=== PATIENT | female | born 1970 | race Caucasian/White ===

== ENCOUNTER → 2016-09-21 | Outpatient (CLI) | payer OTHER ==
--- NOTE | 2016-09-21 15:03 | MAMMOGRAPHY REPORT ---
BILATERAL DIGITAL SCREENING MAMMOGRAM TOMOSYNTHESIS WITH CAD: 09/21/2016 CLINICAL HISTORY: Routine screening. Patient has no complaints. TECHNIQUE: Breast tomosynthesis in addition to standard 2D mammography was performed. Current study was also evaluated with a Computer Aided Detection (CAD) system. COMPARISON: Comparison is made to exams dated: 08/11/2015 mammogram, 06/12/2014 mammogram, 04/24/2012 m ammogram, 04/18/2012 mammogram, 08/11/2015 ultrasound, and 06/12/2014 ultrasound - [facility]. BREAST COMPOSITION: The tissue of both breasts is heterogeneously dense, which may obscure small ma sses. FINDINGS: No suspicious masses, calcifications, or areas of architectural distortion are noted in e ither breast. There are new postsurgical changes from bilateral reduction mammoplasty. Benign-appe aring left breast calcifications are not significantly changed, when accounting for differences in l ocation of the calcifications after reduction mammoplasty. This serves as the patient's new baselin e exam after surgery. IMPRESSION: ACR BI-RADS CATEGORY 2: BENIGN There is no mammographic evidence of malignancy. A 1 year screening mammogram is recommended. The p atient will receive written notification of the results. Approximately 10% of breast cancers are not detected with mammography. A negative mammographic repor t should not delay biopsy if a clinically suggestive mass is present. Francesca Do M.D. /:09/21/2016 14:39:59 Track Patrol: Nayla Cheema RT(R)(M), [facility] letter sent: Normal 1/2 BI-RADS Code: ACR BI-RADS Category 2: Benign
== END | disposition home or self-care (01) ==
LOC: C.MAMM 10:47
PROVIDERS: ATTEND Internal Medicine
DX: Z12.31 Encounter for screening mammogram for malignant neoplasm of breast (principal)

== ENCOUNTER → 2016-12-04 | Day surgery (SDC) | payer OTHER ==
[2016-11-23 14:56] VITALS: Ht 162.6 cm; Wt 65.0 kg
--- NOTE | 2016-12-03 22:42 | HISTORY & PHYSICAL EXAMINATION ---
DATE OF ADMISSION: 12/04/2016 CHIEF COMPLAINT: Cervical dysplasia. HISTORY OF PRESENT ILLNESS: The patient is a 46-year-old white female, 2, para 1-0-1-1, who has a history of cervical dysplasia. The patient had a LEEP procedure done in January 2013 and this specimen showed REBECCA 2. The endocervical margin was not clear; however. 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 Colposcopy was carried out and biopsies taken. Biopsy was consistent with high grade GEORGETTE. ECC was negative. The patient was scheduled for a LEEP in our office, but on colposcopic exam there is an acetowhite lesion extending into the cervical canal. I am therefore recommending conization of the cervix rather than a repeat LEEP. The patient has regular menses and is not presently sexually active. Her last menstrual period was on 11/14/2016. PAST MEDICAL HISTORY: ALLERGIES: None known. MEDICATIONS: None except for ibuprofen as needed for discomfort or headache. PAST SURGICAL HISTORY: The patient has had bilateral breast reduction surgery. This is in addition to the LEEP of the cervix in 2012. 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 ILLNESSES: The patient reports chronic constipation. Also, history of migraine headaches. This is in addition to cervical dysplasia. FAMILY HISTORY: Her mother and maternal grandmother have osteoporosis. SOCIAL HISTORY: The patient is . She is a student. She does not smoke cigarettes or drink alcohol. PHYSICAL EXAMINATION: VITAL SIGNS: Height 5 feet 4-1/2 inches, weight 144 pounds, blood pressure 110/70. HEENT: Grossly within normal limits. NECK: Supple without masses. CHEST: Her lungs are clear without wheezing. HEART: Regular rate and rhythm. No murmurs, gallops or rubs. ABDOMEN: Soft and nontender with no abdominal masses and no hepatosplenomegaly. PELVIC: External genitalia normal. Vagina pink and stimulated. Cervix pink and closed with no lesions to the naked eye. On colposcopy, there is an acetowhite lesion just inside the anterior cervical os which extends into the canal. Cervix is relatively short. Uterus is within normal limits in size and nontender. Adnexa nontender with no masses palpable. EXTREMITIES: No cyanosis, clubbing or edema. 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 The lesion appears to extend into the cervical canal. PLAN: The patient is for cold knife conization of the cervix to remove the abnormal tissue. The patient is aware of the risks of infection, bleeding, damage to surrounding structures, transfusion and risk of anesthesia. She is aware of the alternative of doing a LEEP and also of no treatment. She wishes to proceed with the cold knife conization. ZENA
[~2016-12-04] VITALS: Ht 162.6 cm; Wt 65.0 kg
[~2016-12-04] MED LIST: ATROPINE SULFATE 0.1 MG/ML 5ML SYR IV PRN; DEXAMETHASONE SOD INJ 4 MG/ML VIAL ONE; EpHEDrine SULFATE INJ 50 MG/ML AMP IV PRN; FENTANYL CITRATE INJ 50 MCG/1 ML 2 ML VIAL IV PRN; FENTANYL CITRATE INJ 50 MCG/1 ML 2 ML VIAL ONE; FERRIC SUBSULFATE 8 GM VIAL ONE; IBUPROFEN 600 MG TAB PO PRN; IODINE SOLN STRONG 14 ML ONE; LACTATED RINGER'S 1000ML 1,000 ML IV SCH; LIDOCAINE HCL 2% 2 ML VIAL (20MG/ML) ONE; LIDOCAINE/EPINEPHRINE 1% INJ 50 ML VIAL ONE; MIDAZOLAM HCL 1 MG/ML 2ML VIAL ONE; ONDANSETRON INJ 2 MG/ML 2 ML VIAL IV PRN; ONDANSETRON INJ 2 MG/ML 2 ML VIAL ONE; PROPOFOL IV EMULSION 10 MG/ML 20 ML VIAL IV ONE; SODIUM CHLORIDE 0.9% 1000ML 1,000 ML IV SCH
--- NOTE | 2016-12-04 10:03 | History & Physical Bridge - SC ---
H&P Re-Evaluation Bridge Note: I have examined the patient, reviewed the History & Physical and in the interval since the performance of the History & Physical I have noted the following changes of clinical significance: No changes noted
--- NOTE | 2016-12-04 10:56 | [facility] Post Operative Brief Note ---
Immediate Operative Summary Operative Date Dec 04, 2016. Pre-Operative Diagnosis High Grade Cervical Dysplasia Post-Operative Diagnosis Same with pathology pending Procedure(s) Performed Cold Knife Cone Biopsy of cervix Surgeon Dr. Mitchell Multi Media Specialist Surgeon(s) None Estimated Blood Loss 25 ml Findings See dictated operative note. Specimens A. Cone Biopsy of Cervix, open at 3 B. Posterior Endocervix, 6 o'clock C. Lesion of Hymenal Ring on Left Complication(s) None Disposition Recovery Room / PACU
--- NOTE | 2016-12-04 11:01 | Discharge Instructions-SurgCtr ---
Discharge Instructions Date of Service Dec 04, 2016. Visit Reason for Visit: High Grade Cervical Dysplasia Discharge Discharge Diagnosis / Problem: S/P Cone biopsy of cervix Discharge Goals Goal(s): Diagnostic testing, Therapeutic intervention Activity Recommendations Activity Limitations: per Instructions/Follow-up section ACTIVITY RECOMMENDATIONS: Normal activity the day after procedure with the following exceptions/ limitations: 1. No strenuous activity for 2-3 days. 2. Nothing in vagina for four weeks and until cleared by your physician. 3. No heavy lifting greater than 10 pounds for 3 days. 4. No tampons, douches or intercourse until cleared by physician. 5. You may drive when you feel capable after 24 hours. 6. You may bath or shower. 7. You may climb stairs without restrictions. 8. Call the office if you develop heavy vaginal bleeding, foul smelling vaginal discharge or have persistent cramping. [phone] Anesthesia . Post Anesthesia Instructions: If you have had General Anesthesia or IV Sedation: * Do not drive today. * Resume driving when surgeon permits. * Do not make important decisions or sign legal documents today. * Call surgeon for: 1. Temperature elevations greater than 101 degrees F. 2. Uncontrollable pain. 3. Excessive bleeding. 4. Persistent nausea and vomiting. 5. Medication intolerance (nausea, vomiting or rash). * For nausea and vomiting use only clear liquids such as: tea, soda, bouillon until nausea subsides, then gradually increase diet as tolerated. * If you have any concerns or questions, call your surgeon's office. If physician is unavailable and it is an emergency, call 911 or go to the nearest emergency room. . Diet Recommendations Home Diet: resume previous diet Procedures Procedures Performed: Cold Knife Cone Biopsy of cervix Pending Studies Studies pending at discharge: yes List of pending studies: Pathology report on tissue removed. We will call you with that result in 1-2 weeks. Medical Emergencies . Who to Call and When: Medical Emergencies: If at any time you feel your situation is an emergency, please call 911 immediately. . Non-Emergent Contact Non-Emergency issues call your: Medical Affairs Director Call Non-Emergent contact if: temperature is above 100.5, your pain is worsening . . "Provider Documentation" section prepared by Suki Mitchell. .
--- NOTE | 2016-12-04 11:26 | OPERATIVE REPORT ---
DATE OF OPERATION: 12/04/2016 PREOPERATIVE DIAGNOSIS: High-grade cervical dysplasia. POSTOPERATIVE DIAGNOSIS: Same with pathology pending. PROCEDURE: Cold knife cone biopsy of the cervix. SURGEON: Dr. Suki Mitchell. ANESTHESIA: General. MARKETING TEACHER: Dr. Yoder. PROCEDURE: The patient was taken to the operating room, where general anesthesia was administered. After an adequate level was obtained, she was placed in dorsal lithotomy position. Vulva, vagina, and cervix were prepped with Betadine solution. The patient was draped. Weighted speculum was placed in the posterior fornix of the vagina. The anterior lip of the cervix was grasped with an Allis clamp. A suture of 0 chromic catgut was placed at 3 o'clock and at 9 o'clock. These were held. Lugol's solution was then used to paint the cervix. No non-staining areas were seen. A scalpel was then used to cut a cone-shaped cervical biopsy. This was opened at 3 o'clock. This was sent to pathology. Examining the cervix afterward, there was a small portion of tissue at the posterior cervix just inside the os that appeared to be endocervix, so this was removed and sent to pathology as well. At this point, hemostasis was obtained with ball tip cautery and Monsel's paste. There was an additional 4-5 mm polypoid lesion noted at 3 o'clock at the hymenal ring. This was excised and sent to pathology as well. Finally, there was a small, approximately 3-4 mm lesion noted just outside the hymenal ring at 9 o'clock and this was cauterized. At this point, the procedure was ended. The patient was taken to the recovery room in good condition. Estimated blood loss was approximately 25 mL. I attest to the content of the Intraoperative Record and any orders documented therein. Any exceptions are noted below. MTDD
[2016-12-04 11:45] VITALS: TEMP 36.4
--- NOTE | 2016-12-04 12:05 | Anesthesia Progress Nt - [facility] ---
Anesthesia Post Op Note Date & Time Dec 04, 2016 at 12:05 Vital Signs Pain Intensity: 1 Vital Signs Past 12 Hours Date Time Temp Pulse Resp B/P (MAP) Pulse Ox O2 Delivery O2 Flow Rate FiO2 12/04/16 11:45 36.4 62 16 104/69 (81) 100 Room Air 12/04/16 11:37 36.5 78 16 100/57 98 Room Air 12/04/16 11:04 62 11 12/04/16 11:04 63 11 100 12/04/16 11:00 107/65 12/04/16 10:59 84 23 99 12/04/16 10:59 86 23 12/04/16 10:56 104/67 12/04/16 10:55 109/67 12/04/16 10:54 101 12/04/16 10:54 101 100 12/04/16 10:54 36.4 103 18 109/67 100 Mask 6 12/04/16 07:47 37.1 76 16 120/70 (87) 100 Room Air Notes Mental Status: alert / awake / arousable, participated in evaluation Pt Amnestic to Procedure: Yes Nausea / Vomiting: adequately controlled Pain: adequately controlled Airway Patency, RR, SpO2: stable & adequate BP & HR: stable & adequate Hydration State: stable & adequate Anesthetic Complications: no major complications apparent
[2016-12-04 12:07] VITALS: BP 105/70; PULSE 71; O2SAT 100
== END | disposition home or self-care (01) ==
LOC: X.SURG 07:33
PROVIDERS: ATTEND Obstetrics & Gynecology
DX: N87.1 Moderate cervical dysplasia (principal); A63.0 Anogenital (venereal) warts